=== PATIENT | male | born 1945 | race Hispanic/Latino ===

== ENCOUNTER 2020-10-12 12:46 | Outpatient (CLI) | payer MEDICARE | END 2020-10-12 12:47 | disposition home or self-care (01) | LOC: DTY/OP 12:46 → EEVIPCON 12:46 → DTY/OP 12:47 | PROVIDERS: ATTEND Family Medicine | DX: E11.9 Type 2 diabetes mellitus without complications (principal) | CPT/HCPCS: 97802 ==